=== PATIENT | female | born 1955 | race Caucasian/White ===

== ENCOUNTER → 2018-11-14 | Outpatient (REF) ==
[2018-11-14 13:08] LABS: THYROXINE (T4)-TOTAL 7.8 ug/dL (5.5-11.0)
[2018-11-14 13:21] LABS: THYROID STIMULATING HORMONE 1.59 uIU/mL (0.465-4.680)
== END ==
LOC: ZLAB.WCH 12:06
PROVIDERS: General Practice
DX: Z01.89 Encounter for other specified special examinations (principal)